=== PATIENT | female | born 1965 | race Caucasian/White ===

== ENCOUNTER 2016-06-07 15:43 | Emergency (ER) | payer OTHER ==
[2016-06-07] MEDS ORDERED: ASPIRIN 81 MG CHEW TAB ONE (17:19)
[2016-06-07] MEDS ORDERED: ONDANSETRON 4 MG VIAL ONE (18:37)
[2016-06-07] MEDS ORDERED: MORPHINE 4 MG/ML SYR ONE (18:38)
[2016-06-07] MEDS ORDERED: cloNIDine 0.1 MG TAB ONE (19:01)
== END 2016-06-07 21:02 | disposition home or self-care (01) ==
LOC: ER 15:43
DX: R07.89 Other chest pain (principal); I10 Essential (primary) hypertension
CPT/HCPCS: 36415; 71010; 80053; 82550; 83735; 84484; 85025; 85610; 85730; 93005